=== PATIENT | male | born 1955 | race Caucasian/White ===

== ENCOUNTER 2024-08-12 05:00 | Inpatient (IN) | payer BC ==
[2024-08-06 11:48] LABS: BASOPHILS % (AUTO) 0.7 % (0.0-2.0); EOSINOPHILS # (AUTO) 0.3 K/uL (0.0-0.4); EOSINOPHILS % (AUTO) 5.7 % (0.0-4.0); HEMATOCRIT 48.5 % (36-54); HEMOGLOBIN 16.1 g/dL (14.0-18.0); LYMPHOCYTES # (AUTO) 1.5 K/uL (1.0-5.5); LYMPHOCYTES % (AUTO) 25.2 % (20.5-51.5); MEAN CORPUSCULAR HEMOGLOBIN 32 pg (27-31); MEAN CORPUSCULAR HGB CONC 33 % (32-36); MEAN CORPUSCULAR VOLUME 95 fL (79.0-98.0); MONOCYTES # (AUTO) 0.5 K/uL (0.0-1.0); MONOCYTES % (AUTO) 8.8 % (1.7-9.3); NEUTROPHILS # (AUTO) 3.5 K/uL (1.8-7.7); NEUTROPHILS % (AUTO) 59.6 % (40.0-70.0); PLATELET COUNT (AUTO) 202 K/uL (130-430); WHITE BLOOD COUNT (AUTO) 5.9 K/uL (4.8-10.8)
[2024-08-06 12:00] LABS: ALBUMIN 3.7 g/dL (3.4-4.8); CALCIUM 9.3 mg/dL (8.4-11.0); CREATININE 0.95 mg/dL (0.55-1.30); POTASSIUM 4.1 mmol/L (3.5-5.1); TOTAL BILIRUBIN 0.6 mg/dL (0.0-1.0); TOTAL PROTEIN, SERUM 7.5 g/dL (6.4-8.3)
[~2024-08-12] VITALS: Ht 167.6 cm; Wt 85.5 kg
[2024-08-12] MEDS ORDERED: ACETAMINOPHEN 500 MG TABLET ONE (05:19)
[2024-08-12] MEDS ORDERED: CELECOXIB 100 MG CAPSULE ONE (05:20)
[2024-08-12] MEDS ORDERED: oxyCODONE HCL 10 MG TAB.ER.12H PO ONE (05:23)
[2024-08-12] MEDS ORDERED: GABAPENTIN 300 MG CAPSULE ONE (05:24)
[2024-08-12] MEDS ORDERED: SCOPOLAMINE HYDROBROMIDE 1 MG PATCH .72 H (TRANSDERM-SCOP) TD ONE (05:24)
[2024-08-12] MEDS: ACETAMINOPHEN 500 MG TABLET PO ONE (06:06)
[2024-08-12] MEDS: GABAPENTIN 300 MG CAPSULE PO ONE (06:06)
[2024-08-12] MEDS: CELECOXIB 100 MG CAPSULE PO ONE (06:06)
[2024-08-12] MEDS: SCOPOLAMINE HYDROBROMIDE 1 MG PATCH .72 H (TRANSDERM-SCOP) TD ONE (06:06)
[2024-08-12] MEDS ORDERED: CEFAZOLIN SOD 2 GM in D5W 50 ML IV ONE (06:30)
[2024-08-12] MEDS: oxyCODONE HCL 10 MG TAB.ER.12H PO ONE (07:05)
[2024-08-12] MEDS ORDERED: NS IRRIG SOLN 1000 ML IR ONE (07:15)
[2024-08-12] MEDS ORDERED: BUPIVACAINE /PF 0.25% 10 ML VIAL INJ ONE (07:15)
[2024-08-12] MEDS ORDERED: LR 1,000 ML IV.SOLN IV ONE (07:15)
[2024-08-12] MEDS ORDERED: PROPOFOL 200MG/ 20ML VIAL (DIPRIVAN) IV ONE (07:15)
[2024-08-12] MEDS ORDERED: VANCOMYCIN HCL 1000 MG/VIAL IV ONE (07:15)
[2024-08-12] MEDS ORDERED: TRANEXAMIC ACID 1,000 MG/10 ML VIAL ONE (07:15)
[2024-08-12] MEDS ORDERED: ONDANSETRON HCL 4 MG/2 ML VIAL ONE (07:15)
[2024-08-12] MEDS ORDERED: ceFAZolin SODIUM 1 GM VIAL ONE (07:15)
[2024-08-12] MEDS ORDERED: ROCURONIUM BROMIDE 10 MG/ML (ZEMURON) ONE (07:15)
[2024-08-12] MEDS ORDERED: METOCLOPRAMIDE HCL 10 MG/2 ML VIAL ONE (07:15)
[2024-08-12] MEDS ORDERED: SEVOFLURANE 15 MIN GAS INH ONE (07:15)
[2024-08-12] MEDS ORDERED: HYDROmorphone 2 MG/ML VIAL ONE (07:17)
[2024-08-12] MEDS ORDERED: MIDAZOLAM HCL 2 MG/2 ML VIAL (VERSED) ONE (07:18)
[2024-08-12] MEDS ORDERED: PROPOFOL DRIP 100 ML IV ONE (07:22)
[2024-08-12] MEDS ORDERED: fentaNYL CITRATE/PF 100 MCG/2 ML AMP IVP PRN (07:45)
[2024-08-12] MEDS ORDERED: HYDROmorphone 1 MG/ML INJ. CARTRIDGE IVP PRN ×5 (07:45→11:00)
[2024-08-12] MEDS ORDERED: NALOXONE HCL 0.4 MG/ML AMP (NARCAN) IVP PRN ×5 (07:45→11:45)
[2024-08-12] MEDS ORDERED: LORATADINE 10 MG TABLET PO PRN (11:00)
[2024-08-12] MEDS ORDERED: traMADol HCL HCL 50 MG TABLET (ULTRAM) PO PRN (11:00)
[2024-08-12] MEDS ORDERED: oxyCODONE HCL 5 MG TABLET PO PRN ×2 (11:00)
[2024-08-12] MEDS ORDERED: DEXTROSE 50% JECT 50 ML DISP.SYRIN IVP PRN (11:45)
[2024-08-12] MEDS ORDERED: LACTULOSE 20 GM/30 ML UDC PO PRN (11:45)
[2024-08-12] MEDS ORDERED: INSULIN REGULAR, HUMAN 100 UNITS/ML, 3 ML VIAL (humuLIN R) SUBCUT PRN (11:45)
[2024-08-12] MEDS ORDERED: D5W 1,000 ML IV PRN (11:45)
[2024-08-12] MEDS ORDERED: GLUCOSE (DEXTROSE) ORAL GEL -Adults PO PRN (11:45)
[2024-08-12] MEDS ORDERED: DIPHENHYDRAMINE HCL 25 MG CAPSULE PO PRN (11:45)
[2024-08-12] MEDS ORDERED: ONDANSETRON HCL 4 MG/2 ML VIAL IVP PRN (11:45)
[2024-08-12] MEDS ORDERED: METOCLOPRAMIDE HCL 10 MG/2 ML VIAL IVP PRN (11:45)
[2024-08-12] MEDS ORDERED: BISACODYL 10 MG/SUPPOSITORY RC PRN (11:45)
[2024-08-12] MEDS ORDERED: LABETALOL HCL 20 MG/4 ML CARTRIDGE IVP ONE (12:27)
[2024-08-12] MEDS: LABETALOL 100 MG/ 20ML VIAL IVP PRN (12:38)
[2024-08-12 13:33] VITALS: BP_SYST 157; PULSE 82; RESP 20; TEMP 97; O2SAT 98
[2024-08-12 14:33] VITALS: BP_SYST 153; PULSE 80; RESP 28; TEMP 97; O2SAT 97
[2024-08-12 14:53] VITALS: BP_SYST 157; PULSE 82; RESP 20; TEMP 97; O2SAT 95
[2024-08-12 15:33] VITALS: BP_SYST 141; PULSE 91; RESP 22; TEMP 97.7; O2SAT 97
[2024-08-12] MEDS: ceFAZolin SODIUM 2 GM in D5W 50 ML IV SCH (16:34)
[2024-08-12] MEDS: ACETAMINOPHEN 500 MG TABLET PO SCH (16:35)
[2024-08-12 18:30] VITALS: BP_SYST 144; PULSE 96; RESP 20; TEMP 97.5; O2SAT 98
[2024-08-12 20:00] VITALS: BP_SYST 137; PULSE 95; RESP 18; TEMP 97.9; O2SAT 96
[2024-08-12] MEDS: KETOROLAC TROMETHAMINE 10 MG TABLET (TORADOL) PO SCH (22:00)
[2024-08-12] MEDS: SENNOSIDES/DOCUSATE SODIUM 1 TAB TABLET(SENOKOT-S) PO SCH (22:54)
[2024-08-13 01:00] VITALS: BP_SYST 134; PULSE 83; RESP 18; TEMP 98.3; O2SAT 96
[2024-08-13 07:42] LABS: BASOPHILS % (AUTO) 0.2 % (0.0-2.0); EOSINOPHILS # (AUTO) 0.1 K/uL (0.0-0.4); EOSINOPHILS % (AUTO) 1.2 % (0.0-4.0); HEMATOCRIT 38.1 % (36-54); HEMOGLOBIN 12.8 g/dL (14.0-18.0); LYMPHOCYTES # (AUTO) 1.5 K/uL (1.0-5.5); LYMPHOCYTES % (AUTO) 16.2 % (20.5-51.5); MEAN CORPUSCULAR HEMOGLOBIN 32 pg (27-31); MEAN CORPUSCULAR HGB CONC 34 % (32-36); MEAN CORPUSCULAR VOLUME 94 fL (79.0-98.0); MONOCYTES # (AUTO) 0.7 K/uL (0.0-1.0); MONOCYTES % (AUTO) 7.9 % (1.7-9.3); NEUTROPHILS % (AUTO) 74.5 % (40.0-70.0); PLATELET COUNT (AUTO) 147 K/uL (130-430); RED BLOOD CELL COUNT(AUTO) 4.05 MIL/uL (4.2-6.2); RED CELL DISTRIBUTION WIDTH 13.5 % (9.0-15.0); WHITE BLOOD COUNT (AUTO) 9.4 K/uL (4.8-10.8)
[2024-08-13 07:58] LABS: ALBUMIN 2.7 g/dL (3.4-4.8); CALCIUM 8.2 mg/dL (8.4-11.0); CREATININE 0.94 mg/dL (0.55-1.30); POTASSIUM 3.5 mmol/L (3.5-5.1); TOTAL BILIRUBIN 0.4 mg/dL (0.0-1.0); TOTAL PROTEIN, SERUM 5.6 g/dL (6.4-8.3)
[2024-08-13 08:10] VITALS: BP_SYST 131; PULSE 94; RESP 12; TEMP 98.2; O2SAT 95
[2024-08-13 10:00] VITALS: O2SAT 95
[2024-08-13 11:07] VITALS: BP_SYST 139; PULSE 79; RESP 16; TEMP 97.1; O2SAT 94
[2024-08-13] MEDS: ASPIRIN 81 MG TAB.CHEW PO SCH (11:18)
[2024-08-13] MEDS: CELECOXIB 200 MG CAPSULE PO SCH (11:18)
[2024-08-13 15:00] VITALS: BP_SYST 146; PULSE 83; RESP 14; TEMP 97.4; O2SAT 95
[2024-08-13 15:37] VITALS: BP_SYST 159; PULSE 83; RESP 16; TEMP 98.8; O2SAT 93
== END 2024-08-13 15:48 | disposition home health service (06) | DRG 467 ==
LOC: SMU 05:00
PROVIDERS: ADMIT Student in an Organized Health Care Education/Training Program; ATTEND Student in an Organized Health Care Education/Training Program
PROC: 0SRC0J9 Replacement of Right Knee Joint with Synthetic Substitute, Cemented, Open Approach (ICD-10-PCS; 2024-08-12)
PROC: 0SPC0JZ Removal of Synthetic Substitute from Right Knee Joint, Open Approach (ICD-10-PCS; principal; 2024-08-12 07:28)
DX: T84.032A Mechanical loosening of internal right knee prosthetic joint, initial encounter (principal); R71.0 Precipitous drop in hematocrit; Z79.899 Other long term (current) drug therapy; Z88.8 Allergy status to other drugs, medicaments and biological substances
CPT/HCPCS: 36415; 71046; 73560; 80053; 82948; 83037; 85025; 87081; 96379; 97110-GP; 97116-GP; 97530-GP; A4649; C1776; J0690; J1170; J2250; J2405; J2704; J2765; J3370; J3490; J7060; J7120